=== PATIENT | male | born 1990 | race Caucasian/White ===

== ENCOUNTER 2018-06-28 08:52 | Emergency (ER) | payer BC, OTHER ==
[2018-06-28 09:01] VITALS: BP 142/82; PULSE 85; RESP 18; TEMP 98.1
[2018-06-28] MEDS ORDERED: LIDOCAINE VISCOUS 2% 15 ML CUP MUCOUS MEM ONE (09:36)
[2018-06-28] MEDS ORDERED: DEXAMETHASONE SOD PHOSPHATE 10 MG/ML 1 ML VIAL IM STA (09:36)
--- NOTE | 2018-06-28 09:39 | ED ---
ENT HPI - General Chief complaint: ENT Stated complaint: sore throat Time Seen by Provider: 06/28/18 09:08 Source: patient, RN notes reviewed Mode of arrival: ambulatory Limitations: no limitations - History of Present Illness Initial comments: 28-year-old male presents emergency Department chief complaint sore throat 2 days. Patient states is severe states is very painful but no difficulty swallowing. Denies any difficulty breathing. Patient states she's had minimal sinus congestion no cough no ear pain this time. Did have some prior left ear pain. Patient states he just feels rundown. Patient states he has no history of mono NO KNOWN DRUG ALLERGIES. He has tried some ibuprofen which has helped along with Chloraseptic spray. - Related Data Home Medications Medication Instructions Recorded Confirmed Dayquil (Unknown) 2 cap PO DAILY 06/28/18 Ibuprofen 800 mg PO DAILY 06/28/18 06/28/18 Nyquil (Unknown) 30 ml PO HS 06/28/18 Previous Rx's Medication Instructions Recorded Amoxicillin 500 mg PO Q8H #30 capsule 06/28/18 Allergies Allergy/AdvReac Type Severity Reaction Status Date / Time No Known Allergies Allergy Verified 06/28/18 09:16 Review of Systems ROS Statement: Those systems with pertinent positive or pertinent negative responses have been documented in the HPI. ROS Other: All systems not noted in ROS Statement are negative. Past Medical History Past Medical History: Asthma History of Any Multi-Drug Resistant Organisms: None Reported Past Surgical History: No Surgical Hx Reported Past Psychological History: No Psychological Hx Reported Smoking Status: Never smoker Past Alcohol Use History: Occasional Past Drug Use History: None Reported General Exam Limitations: no limitations General appearance: alert, in no apparent distress Head exam: Present: atraumatic, normocephalic, normal inspection Eye exam: Present: normal appearance, PERRL, EOMI. Absent: scleral icterus, conjunctival injection, periorbital swelling ENT exam: Present: mucous membranes moist, TM's normal bilaterally, normal external ear exam. Absent: normal oropharynx (Erythematous posterior pharynx mild edema though swallowing secretions well) Neck exam: Present: normal inspection, full ROM, lymphadenopathy. Absent: tenderness, meningismus Respiratory exam: Present: normal lung sounds bilaterally. Absent: respiratory distress, wheezes, rales, rhonchi, stridor Cardiovascular Exam: Present: regular rate, normal rhythm, normal heart sounds. Absent: systolic murmur, diastolic murmur, rubs, gallop, clicks GI/Abdominal exam: Present: soft, normal bowel sounds. Absent: distended, tenderness, guarding, rebound, rigid Course Vital Signs 06/28/18 08:59 Temperature 98.1 F Pulse Rate 85 Respiratory 18 Rate Blood Pressure 142/82 O2 Sat by Pulse 99 Oximetry Medical Decision Making - Medical Decision Making 28-year-old male present emergency from for sore throat. Patient has clinical strep pharyngitis. Patient will started on amoxicillin 3 times a day. Patient will continue ibuprofen, Chloraseptic spray so water gargles. Patient also had mildly elevated blood pressure 142/82. Patient will follow-up PCP for recheck of blood pressure we discussed dietary modifications. Disposition Clinical Impression: Streptococcal sore throat Disposition: HOME SELF-CARE Condition: Stable Instructions: Strep Throat (ED) Additional Instructions: Please return to the Emergency Department if symptoms worsen or any other concerns. Prescriptions: Amoxicillin 500 mg PO Q8H #30 capsule Is patient prescribed a controlled substance at d/c from ED?: No Referrals: Dereje Parrish MD [Primary Care Provider] - 1-2 days Time of Disposition: 09:39
== END 2018-06-28 10:10 | disposition home or self-care (01) ==
LOC: EC 08:52
DX: J02.0 Streptococcal pharyngitis (principal); Z79.1 Long term (current) use of non-steroidal anti-inflammatories (NSAID); Z79.899 Other long term (current) drug therapy
CPT/HCPCS: 99282; 96372; J1100

== ENCOUNTER 2019-05-18 20:07 | Emergency (ER) | payer OTHER ==
[2019-05-18] MEDS ORDERED: ALBUTEROL NEBULIZED 2.5 MG/3 ML INHALATION STA (20:25)
[2019-05-18] MEDS ORDERED: IPRATROPIUM 0.5 MG/2.5 ML NEBU INHALATION STA (20:25)
[2019-05-18] MEDS ORDERED: predniSONE 50 MG TAB PO STA (20:25)
--- NOTE | 2019-05-18 20:38 | ED ---
General Adult HPI - General Chief complaint: Shortness of Breath Stated complaint: ROSE Time Seen by Provider: 05/18/19 20:13 Source: patient Mode of arrival: ambulatory Limitations: no limitations - History of Present Illness Initial comments: 29-year-old male patient presents to the emergency department today for evaluation of shortness of breath and wheezing. Patient states symptoms have been present since yesterday. States he does have a history of asthma especially when exposed to allergens. States he was at her sister's house yesterday who has 3 cats which is a known allergen for him. Patient states that he has been using his inhaler. He did 3 albuterol breathing treatments today without relief of symptoms. Patient denies any cough or congestion. Denies fever or chills. Patient denies any recent rash, chest pain, abdominal pain, nausea, vomiting, diarrhea, constipation, back pain, numbness, tingling, dizziness, weakness, hematuria, dysuria, urinary urgency, urinary frequency, headache, visual changes, or any other complaints. - Related Data Home Medications Medication Instructions Recorded Confirmed Dayquil (Unknown) 2 cap PO DAILY 06/28/18 Ibuprofen 800 mg PO DAILY 06/28/18 06/28/18 Nyquil (Unknown) 30 ml PO HS 06/28/18 Previous Rx's Medication Instructions Recorded Amoxicillin 500 mg PO Q8H #30 capsule 06/28/18 predniSONE 50 mg PO DAILY #5 tablet 05/18/19 Allergies Allergy/AdvReac Type Severity Reaction Status Date / Time No Known Allergies Allergy Verified 05/18/19 20:10 Review of Systems ROS Statement: Those systems with pertinent positive or pertinent negative responses have been documented in the HPI. ROS Other: All systems not noted in ROS Statement are negative. Past Medical History Past Medical History: Asthma History of Any Multi-Drug Resistant Organisms: None Reported Past Surgical History: No Surgical Hx Reported Past Psychological History: No Psychological Hx Reported Smoking Status: Never smoker Past Alcohol Use History: Occasional Past Drug Use History: None Reported General Exam Limitations: no limitations General appearance: alert, in no apparent distress, other (This is a well- developed, well-nourished adult male patient in no acute distress. Vital signs upon presentation are temperature 97.4F, pulse 96, respirations 24, blood pressure 150/85, pulse ox 100% on room air.) Eye exam: Present: normal appearance, PERRL, EOMI. Absent: scleral icterus, conjunctival injection, periorbital swelling ENT exam: Present: normal exam, normal oropharynx, mucous membranes moist Respiratory exam: Present: wheezes (Tight expiratory wheezing noted in the posterior lung tapia.). Absent: normal lung sounds bilaterally, respiratory distress, rales, rhonchi, stridor Cardiovascular Exam: Present: regular rate, normal rhythm, normal heart sounds. Absent: systolic murmur, diastolic murmur, rubs, gallop, clicks GI/Abdominal exam: Present: soft, normal bowel sounds. Absent: distended, tenderness, guarding, rebound, rigid Neurological exam: Present: alert, oriented X3, CN II-XII intact Psychiatric exam: Present: normal affect, normal mood Skin exam: Present: warm, dry, intact, normal color. Absent: rash Course Vital Signs 05/18/19 05/18/19 05/18/19 20:08 20:38 20:40 Temperature 97.4 F L Pulse Rate 96 88 Respiratory 24 18 20 Rate Blood Pressure 150/85 O2 Sat by Pulse 100 Oximetry 05/18/19 05/18/19 05/18/19 20:52 21:09 21:21 Temperature Pulse Rate 86 99 101 H Respiratory 20 20 20 Rate Blood Pressure O2 Sat by Pulse Oximetry 05/18/19 05/18/19 05/18/19 21:47 23:11 23:12 Temperature 98.2 F 98.2 F Pulse Rate 101 H 99 99 Respiratory 18 18 18 Rate Blood Pressure 147/77 140/77 140/77 O2 Sat by Pulse 96 95 95 Oximetry Medical Decision Making - Medical Decision Making 29-year-old male patient presents to the emergency department today for evaluation of wheezing and shortness of breath. Patient has history of asthma was exposed to Yesterday. Physical examination reveals tight expiratory wheezing in the posterior lung tapia. Patient was given 7.5 mg of albuterol and 0.5 mg Atrovent nebulized treatment. He is also given 50 mg of prednisone by mouth. Upon reevaluation reports improvement of symptoms. Lungs are now clear to auscultation. Chest x-ray shows no acute cardiopulmonary process. He'll be discharged home with prescription for prednisone. He does have albuterol treatments at home. Is instructed to follow-up with his primary care physician for recheck in 1-2 days. Return parameters were discussed in detail. He verbalizes understanding and agrees with this plan. - Radiology Data Radiology results: report reviewed, image reviewed Two-view x-ray of the chest is obtained. Report was reviewed in its entirety. Impression by Dr. Moscoso acute cardiopulmonary process. Disposition Clinical Impression: Asthma exacerbation Disposition: HOME SELF-CARE Condition: Good Instructions (If sedation given, give patient instructions): Asthma (ED) Additional Instructions: Complete steroid prescription in full. The prescription has been sent to [facility] pharmacy in [place]. Follow-up through primary care physician for recheck in 1-2 days. Return to the emergency department immediately for any new, worsening, or concerning symptoms. Prescriptions: predniSONE 50 mg PO DAILY #5 tablet Is patient prescribed a controlled substance at d/c from ED?: No Referrals: Dereje Parrish MD [Primary Care Provider] - 1-2 days Time of Disposition: 22:51
--- NOTE | 2019-05-18 20:54 | XR ---
EXAMINATION TYPE: XR chest 2V DATE OF EXAM: 05/18/2019 COMPARISON: NONE HISTORY: Asthma, shortness of breath TECHNIQUE: Frontal and lateral views of the chest are obtained. FINDINGS: There is no focal air space opacity, pleural effusion, or pneumothorax seen. The cardiac silhouette size is within normal limits. The osseous structures are intact. IMPRESSION: No acute cardiopulmonary process.
[2019-05-18 21:48] VITALS: RESP 18
[2019-05-18 23:12] VITALS: BP 140/77; PULSE 99; TEMP 98.2
== END 2019-05-18 23:11 | disposition home or self-care (01) ==
LOC: EC 20:07
DX: J45.901 Unspecified asthma with (acute) exacerbation (principal); Z79.1 Long term (current) use of non-steroidal anti-inflammatories (NSAID); Z79.899 Other long term (current) drug therapy
CPT/HCPCS: 94644; 71046; 99285; J7512